=== PATIENT | female | born 1945 | race Caucasian/White ===

== ENCOUNTER 2021-01-05 08:21 | Outpatient (CLI) | payer MEDICARE ==
[~2021-01-05] VITALS: Ht 160 cm; Wt 77.6 kg
[2021-01-05 09:12] LABS: HEMOGLOBIN 15.1 gm/dl (12.3-15.3); RED BLOOD COUNT 5.26 M/UL (4.00-5.10); WHITE BLOOD COUNT 10.9 K/UL (4.5-11.0)
[2021-01-05 09:33] LABS: BUN/CREATININE RATIO 20 (0-10)
[2021-01-05] MEDS ORDERED: BREO ELLIPTA 21 EACH INH ×2 (10:04→10:07)
[2021-01-05] MEDS ORDERED: COZAAR 50MG TAB50 MG PO (10:04)
[2021-01-05] MEDS ORDERED: PROTONIX 40 MG40 M1 PO (10:05)
[2021-01-05] MEDS ORDERED: TENORMIN 50 MG50 MG PO (10:05)
[2021-01-05] MEDS ORDERED: ISOSORBIDE MONO60 MG PO (10:05)
[2021-01-05] MEDS ORDERED: CRESTOR10 MG PO (10:06)
[2021-01-05] MEDS ORDERED: VENTOLIN HFA 66.7 GM INH (10:06)
[2021-01-05] MEDS ORDERED: CLARITIN10 MG PO (10:07)
[2021-01-05] MEDS ORDERED: IBU600 MG PO (10:07)
[2021-01-05] MEDS ORDERED: BAYER CHEWABLE81 MG PO (10:07)
[2021-01-05] MEDS ORDERED: PROBIOTIC1 EAC1 PO (10:08)
[2021-01-05] MEDS ORDERED: HYDROCHLOROTHIA25 MG PO (17:33)
[2021-01-06 04:14] LABS: RED BLOOD COUNT 4.9 M/UL (4.00-5.10); WHITE BLOOD COUNT 8.8 K/UL (4.5-11.0)
[2021-01-06 05:02] LABS: BUN/CREATININE RATIO 17 (0-10)
[2021-01-06] MEDS ORDERED: NITROGLYCERIN0.4 MG SL (08:29)
[2021-01-06] MEDS ORDERED: CRESTOR20 MG PO (08:29)
[2021-01-06] MEDS ORDERED: BRILINTA 90 MG90 MG PO (08:29)
== END 2021-01-06 12:32 | disposition home or self-care (01) ==
LOC: CATH 08:21 → PROG CARE 14:26 → CATH 01-06 12:32
PROVIDERS: Internal Medicine Cardiovascular Disease
DX: I25.118 Atherosclerotic heart disease of native coronary artery with other forms of angina pectoris (principal); I10 Essential (primary) hypertension; E78.5 Hyperlipidemia, unspecified; J44.9 Chronic obstructive pulmonary disease, unspecified; Z72.0 Tobacco use; Z79.899 Other long term (current) drug therapy
CPT/HCPCS: 36415; 80048; 85025; 85347; 85610; 93005; 93571; 99152; 99153; C1725; C1769; C1874; C1887; C1894; C9600; J0360; J1644; J2250; J3010; J3246; J7030; Q9967

== ENCOUNTER → 2021-03-02 | Outpatient (CLI) | payer MEDICARE ==
[~2021-03-02] MED LIST: BAYER CHEWABLE81 MG PO; BREO ELLIPTA 21 EACH INH; BRILINTA 90 MG90 MG PO; CLARITIN10 MG PO; COZAAR 50MG TAB50 MG PO; CRESTOR10 MG PO; CRESTOR20 MG PO; HYDROCHLOROTHIA25 MG PO; IBU600 MG PO; ISOSORBIDE MONO60 MG PO; NITROGLYCERIN0.4 MG SL; PROBIOTIC1 EAC1 PO; PROTONIX 40 MG40 M1 PO; TENORMIN 50 MG50 MG PO; VENTOLIN HFA 66.7 GM INH
[2021-03-02 12:55] LABS: HEMOGLOBIN 13.8 gm/dl (12.3-15.3); RED BLOOD COUNT 4.78 M/UL (4.00-5.10); WHITE BLOOD COUNT 6.4 K/UL (4.5-11.0)
[2021-03-02 13:18] LABS: BUN/CREATININE RATIO 19 (0-10)
[2021-03-03 07:11] LABS: COMPLEMENT C3, SERUM 146 mg/dL (82-167); COMPLEMENT C4, SERUM 20 mg/dL (12-38)
[2021-03-05 10:13] LABS: DSDNA CRITHIDIA LUCILIAE IFA Negative (Negative)
== END ==
LOC: LAB 12:06
PROVIDERS: Internal Medicine
DX: M25.50 Pain in unspecified joint (principal); R76.8 Other specified abnormal immunological findings in serum; L56.8 Other specified acute skin changes due to ultraviolet radiation; D89.89 Other specified disorders involving the immune mechanism, not elsewhere classified
CPT/HCPCS: 36415; 80053; 81001; 82570; 84156; 85025; 86160; 86162; 86255

== ENCOUNTER → 2021-08-25 | Outpatient (CLI) | payer MEDICARE | LOC: KOH-I 13:30 | DX: F17.210 Nicotine dependence, cigarettes, uncomplicated (principal); R91.8 Other nonspecific abnormal finding of lung field | CPT/HCPCS: 71271 ==

== ENCOUNTER → 2021-09-20 | Day surgery (SDC) | payer MEDICARE ==
[2021-09-20 07:45] LABS: HEMOGLOBIN 12.2 gm/dl (12.3-15.3); RED BLOOD COUNT 4.36 M/UL (4.00-5.10); WHITE BLOOD COUNT 6.1 K/UL (4.5-11.0)
[2021-09-20 08:17] LABS: BUN/CREATININE RATIO 20 (0-10)
== END | disposition home or self-care (01) ==
LOC: OR 06:46
PROVIDERS: Internal Medicine Pulmonary Disease
DX: R91.8 Other nonspecific abnormal finding of lung field (principal); J98.4 Other disorders of lung; J44.9 Chronic obstructive pulmonary disease, unspecified; J98.09 Other diseases of bronchus, not elsewhere classified; F17.200 Nicotine dependence, unspecified, uncomplicated; G47.33 Obstructive sleep apnea (adult) (pediatric); I11.9 Hypertensive heart disease without heart failure; E78.5 Hyperlipidemia, unspecified; Z95.5 Presence of coronary angioplasty implant and graft; Z88.2 Allergy status to sulfonamides; Z79.82 Long term (current) use of aspirin
CPT/HCPCS: 36415; 80048; 85027; J2704; J3010; J7030

== ENCOUNTER → 2021-11-24 | Outpatient (CLI) | payer MEDICARE | LOC: KOH-I 12:42 | DX: R91.8 Other nonspecific abnormal finding of lung field (principal) | CPT/HCPCS: 71250 ==